=== PATIENT | female | born 1970 | race Caucasian/White ===

== ENCOUNTER 2023-10-02 10:30 | Emergency (ER) | payer BC, OTHER ==
[2023-10-02 10:52] VITALS: BP 126/87; PULSE 92
[2023-10-02 11:15] LABS: BASOPHILS ABSOLUTE AUTO 0.02 10^3/uL (0.00-0.10); BASOPHILS PERCENT AUTO 0.3 % (0.0-1.0); HEMATOCRIT 46.6 % (37.0-47.0); HEMOGLOBIN 15.2 g/dL (12.0-16.0); IMMATURE GRAN ABSOLUTE AUTO 0.01 10^3/uL (0.00-0.50); IMMATURE GRAN PERCENT AUTO 0.1 % (0.0-5.0); LYMPHOCYTES ABSOLUTE AUTO 1.64 10^3/uL (1.00-4.00); LYMPHOCYTES PERCENT AUTO 20.9 % (20.0-40.0); MEAN CORPUSCULAR HEMOGLOBIN 28.7 pg (27.0-31.0); MEAN CORPUSCULAR HGB CONC 32.6 g/dL (32.0-36.0); MEAN CORPUSCULAR VOLUME 87.9 fL (82.0-92.0); MEAN PLATELET VOLUME 10.9 fL (7.4-10.4); MONOCYTES ABSOLUTE AUTO 0.46 10^3/uL (0.10-0.80); MONOCYTES PERCENT AUTO 5.9 % (2.0-8.0); NEUTROPHILS ABSOLUTE AUTO 5.73 10^3/uL (2.50-7.00); NEUTROPHILS PERCENT AUTO 72.8 % (50.0-70.0); PLATELET COUNT,PLT 346 10^3/uL (150-400); RED CELL DISTRIBUTION WIDTH 13.8 % (11.5-14.5); WHITE BLOOD CELL COUNT,WBC 7.86 10^3/uL (5.00-10.00)
[2023-10-02] MEDS: Sodium Chloride 0.9% 1,000 ML IV ONE (11:17)
[2023-10-02 11:19] LABS: APPEARANCE,URINE CLOUDY (CLEAR); BILIRUBIN,URINE LARGE (NEGATIVE); COLOR,URINE RED (YELLOW); GLUCOSE,URINE 100 mg/dL (NEGATIVE); KETONES,URINE 40 mg/dL (NEGATIVE); LEUKOCYTE ESTERASE,URINE LARGE (NEGATIVE); NITRITE,URINE NEGATIVE (NEGATIVE); OCCULT BLOOD,URINE LARGE (NEGATIVE); PROTEIN,URINE >=300 mg/dL (NEGATIVE)
[2023-10-02 11:21] LABS: BACTERIA,URINE RARE /HPF (NONE TO FEW); EPITHELIAL CELLS,URINE RARE /LPF; RBC,URINE >100 /HPF (0-5)
[2023-10-02 11:31] LABS: ALANINE AMINOTRANSFERASE,ALT 39 U/L (14-63); ALKALINE PHOSPHATASE 99 U/L (46-116); ANION GAP 16.3 mmol/L (5-15); ASPARTATE AMNIOTRANSFERASE,AST 24 U/L (15-37); BILIRUBIN TOTAL 0.6 mg/dL (0.2-1.0); BLOOD UREA NITROGEN,BUN 12 mg/dL (7-18); C-REACTIVE PROTEIN < 0.50 mg/dL (0.00-0.50); CARBON DIOXIDE,CO2 23.4 mmol/L (21.0-32.0); CHLORIDE,CL 103 mmol/L (98-107); CREATININE 0.71 mg/dL (0.51-1.17); EST CRCL DRUG DOSING (CG) 79.13 mL/min; ESTIMATED GFR 102 mL/min (>=60); GLUCOSE RANDOM 109 mg/dL (70-140); POTASSIUM,K 3.7 mmol/L (3.5-5.1); PROTEIN TOTAL,TP 7.5 g/dL (6.4-8.2); SODIUM,NA 139 mmol/L (136-145)
[2023-10-02] MEDS: Sodium Chloride 0.9% 50 ML IV SCH (11:42)
[2023-10-02] MEDS: Iopamidol 755 Mg/ML 100 ML Bottle IV ONE (11:42)
[2023-10-02] MEDS: Ketorolac 30 MG/ML SDV IVPUSH ONE (12:54)
[2023-10-02] MEDS: Tamsulosin 0.4 MG Cap.ER PO ONE (12:56)
== END 2023-10-02 13:10 | disposition home or self-care (01) ==
LOC: KA.ED 10:30
DX: N20.1 Calculus of ureter (principal); R31.0 Gross hematuria; Z88.2 Allergy status to sulfonamides; Z79.899 Other long term (current) drug therapy
CPT/HCPCS: 74177; 80053; 81001; 85025; 86140; 87086; 96361; 96374; 99284; 99284-25; A9270-GY; J1885; J3490; J7030; Q9967

== ENCOUNTER 2024-01-28 10:47 | Emergency (ER) | payer BC ==
[2024-01-28 11:32] LABS: APPEARANCE,URINE TURBID (CLEAR); BILIRUBIN,URINE LARGE (NEGATIVE); COLOR,URINE RED (YELLOW); GLUCOSE,URINE 100 mg/dL (NEGATIVE); KETONES,URINE 40 mg/dL (NEGATIVE); LEUKOCYTE ESTERASE,URINE LARGE (NEGATIVE); NITRITE,URINE NEGATIVE (NEGATIVE); OCCULT BLOOD,URINE LARGE (NEGATIVE); PH,URINE 8.5 (5.0-9.0); PROTEIN,URINE >=300 mg/dL (NEGATIVE); UROBILINOGEN,URINE >=8.0 E.U./dL (0.2-1.0)
[2024-01-28 11:34] LABS: BACTERIA,URINE FEW /HPF (NONE TO FEW); EPITHELIAL CELLS,URINE RARE /LPF; RBC,URINE >100 /HPF (0-5)
[2024-01-28 12:04] LABS: BASOPHILS ABSOLUTE AUTO 0.04 10^3/uL (0.00-0.10); BASOPHILS PERCENT AUTO 0.7 % (0.0-1.0); EOSINOPHILS PERCENT AUTO 1.7 % (1.0-3.0); HEMATOCRIT 40.8 % (37.0-47.0); HEMOGLOBIN 13.4 g/dL (12.0-16.0); LYMPHOCYTES ABSOLUTE AUTO 1.47 10^3/uL (1.00-4.00); LYMPHOCYTES PERCENT AUTO 24.5 % (20.0-40.0); MEAN CORPUSCULAR HEMOGLOBIN 29.6 pg (27.0-31.0); MEAN CORPUSCULAR HGB CONC 32.8 g/dL (32.0-36.0); MEAN CORPUSCULAR VOLUME 90.1 fL (82.0-92.0); MEAN PLATELET VOLUME 10.7 fL (7.4-10.4); MONOCYTES ABSOLUTE AUTO 0.38 10^3/uL (0.10-0.80); MONOCYTES PERCENT AUTO 6.3 % (2.0-8.0); NEUTROPHILS PERCENT AUTO 66.8 % (50.0-70.0); PLATELET COUNT,PLT 279 10^3/uL (150-400); RED BLOOD CELL COUNT 4.53 10^6/uL (3.80-5.50); RED CELL DISTRIBUTION WIDTH 13.8 % (11.5-14.5); WHITE BLOOD CELL COUNT,WBC 5.99 10^3/uL (5.00-10.00)
[2024-01-28 12:20] LABS: ANION GAP 12.9 mmol/L (5-15); CALCIUM 8.5 mg/dL (8.7-10.3); CARBON DIOXIDE,CO2 30.9 mmol/L (21.0-32.0); CREATININE 0.71 mg/dL (0.51-1.17); EST CRCL DRUG DOSING (CG) 84.8 mL/min; POTASSIUM,K 3.8 mmol/L (3.5-5.1)
[2024-01-28] MEDS: cefTRIAXone 1 GM Vial IM ONE (12:29)
[2024-01-28] MEDS: Nitrofurantoin Monohydrate/Macrocrystalline 100 MG Cap PO ONE (12:29)
[2024-01-28] MEDS: Lidocaine 1% 5 ML VIAL INJECT ONE (12:29)
[2024-01-28 12:53] VITALS: BP 130/84; PULSE 71
== END 2024-01-28 12:48 | disposition home or self-care (01) ==
LOC: KA.ED 10:47
DX: R31.0 Gross hematuria (principal); R10.31 Right lower quadrant pain; Z88.2 Allergy status to sulfonamides; Z96.0 Presence of urogenital implants; Z79.899 Other long term (current) drug therapy
CPT/HCPCS: 36415; 80048; 81001; 85025; 87086; 96372; 99284; A9270; J0696; J3490